=== PATIENT | male | born 2000 | race Caucasian/White ===

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

== ENCOUNTER 2022-01-04 19:29 | Emergency (ER) | payer MEDICAID ==
[2022-01-04] MEDS ORDERED: HALOPERIDOL LACTATE 5 MG/1 ML INJ IM PRN (19:52)
[2022-01-04] MEDS ORDERED: diphenhydrAMINE 50 MG/ML VIAL IM PRN (19:52)
[2022-01-04] MEDS ORDERED: LORazepam 2 MG/ML VIAL IM PRN (19:52)
--- NOTE | 2022-01-04 19:57 | Emergency Department Report ---
HPI - General Time Seen by Provider: 01/04/22 19:52 - HPI HPI: Charge nurse triage/mental health holding Patient is a 21-year-old male brought in for combative behavior. Patient reportedly has a history of schizophrenia. The patient was brought in by his mother for combative behavior. Patient was observed striking mother and being aggressive. Patient denies complaints ED Past Medical Hx - Past Medical History Hx Psychiatric Treatment: Yes (schizophrenia) - Surgical History Past Surgical History?: No - Family History Family history: no significant - Social History Smoking Status: Never Smoker Substance Use Type: None (denies illicit drug use) - Medications Home Medications: Home Medications Medication Instructions Recorded Confirmed Last Taken Type VALPROIC ACID Liq [DepaKENE Liq] 250 mg PO BID 07/30/19 07/30/19 Unknown History diphenhydrAMINE [Benadryl CAP] 25 mg PO QHS 07/30/19 07/30/19 Unknown History risperiDONE [RisperDAL ORAL LIQD] 2 mg PO QHS 07/30/19 07/30/19 Unknown History ED Review of Systems ROS: Stated complaint: MENTAL HEALTH EVAL Other details as noted in HPI Constitutional: no symptoms reported Eyes: denies: eye pain ENT: denies: throat pain Respiratory: no symptoms reported Cardiovascular: denies: chest pain Endocrine: no symptoms reported Gastrointestinal: denies: abdominal pain Genitourinary: denies: dysuria Musculoskeletal: denies: back pain Neurological: denies: headache Psychiatric: other (Combative behavior) Physical Exam - Physical Exam Physical Exam: GENERAL: The patient is well-developed well-nourished male lying on stretcher not appearing to be in acute distress. [] HEENT: Normocephalic. Atraumatic. Extraocular motions are intact. Patient has moist mucous membranes. NECK: Supple. Trachea midline CHEST/LUNGS: Clear to auscultation. There is no respiratory distress noted. HEART/CARDIOVASCULAR: Regular. There is no tachycardia. There is no gallop rub or murmur. ABDOMEN: Abdomen is soft, nontender. Patient has normal bowel sounds. There is no abdominal distention. SKIN: There is no rash. There is no edema. There is no diaphoresis. NEURO: The patient is awake, alert, and oriented. The patient is cooperative. The patient has no focal neurologic deficits. The patient has normal speech. GCS 15 MUSCULOSKELETAL: There is no evidence of acute injury. ED Medical Decision Making - Lab Data Result diagrams: 01/04/22 20:24 01/04/22 20:24 Laboratory Tests 01/04/22 01/04/22 01/04/22 20:24 20:24 20:24 WBC 9.7 RBC 6.03 H Hgb 17.0 H Hct 51.8 H MCV 86 MCH 28 MCHC 33 RDW 13.9 Plt Count 329 Lymph % (Auto) 23.9 [place] % (Auto) 10.2 H Eos % (Auto) 1.8 Baso % (Auto) 0.6 Lymph # (Auto) 2.3 [place] # (Auto) 1.0 H Eos # (Auto) 0.2 Baso # (Auto) 0.1 Seg Neutrophils % 63.5 Seg Neutrophils # 6.2 Sodium 137 Potassium 4.3 Chloride 99.7 Carbon Dioxide 20 L Anion Gap 22 BUN 9 Creatinine 1.0 Estimated GFR > 60 BUN/Creatinine Ratio 9 Glucose 253 H Calcium 10.2 Total Creatine Kinase Urine Color Urine Turbidity Urine pH Ur Specific [place] Urine Protein Urine Glucose (UA) Urine Ketones Urine Blood Urine Nitrite Urine Bilirubin Urine Urobilinogen Ur Leukocyte Esterase Urine WBC (Auto) Urine RBC (Auto) U Epithel Cells (Auto) Urine Mucus Salicylates < 0.3 L Urine Opiates Screen Urine Methadone Screen Acetaminophen Ur Barbiturates Screen Valproic Acid 48.7 L Ur Phencyclidine Scrn Ur Amphetamines Screen U Benzodiazepines Scrn Urine Cocaine Screen U Marijuana (THC) Screen Drugs of Abuse Note Plasma/Serum Alcohol 01/04/22 01/04/22 01/04/22 20:24 20:24 21:00 WBC RBC Hgb Hct MCV MCH MCHC RDW Plt Count Lymph % (Auto) [place] % (Auto) Eos % (Auto) Baso % (Auto) Lymph # (Auto) [place] # (Auto) Eos # (Auto) Baso # (Auto) Seg Neutrophils % Seg Neutrophils # Sodium Potassium Chloride Carbon Dioxide Anion Gap BUN Creatinine Estimated GFR BUN/Creatinine Ratio Glucose Calcium Total Creatine Kinase 292 H Urine Color Urine Turbidity Urine pH Ur Specific [place] Urine Protein Urine Glucose (UA) Urine Ketones Urine Blood Urine Nitrite Urine Bilirubin Urine Urobilinogen Ur Leukocyte Esterase Urine WBC (Auto) Urine RBC (Auto) U Epithel Cells (Auto) Urine Mucus Salicylates Urine Opiates Screen Urine Methadone Screen Acetaminophen 5.0 L Ur Barbiturates Screen Valproic Acid Ur Phencyclidine Scrn Ur Amphetamines Screen U Benzodiazepines Scrn Urine Cocaine Screen U Marijuana (THC) Screen Drugs of Abuse Note Plasma/Serum Alcohol < 0.01 01/04/22 01/04/22 Unknown Unknown WBC RBC Hgb Hct MCV MCH MCHC RDW Plt Count Lymph % (Auto) [place] % (Auto) Eos % (Auto) Baso % (Auto) Lymph # (Auto) [place] # (Auto) Eos # (Auto) Baso # (Auto) Seg Neutrophils % Seg Neutrophils # Sodium Potassium Chloride Carbon Dioxide Anion Gap BUN Creatinine Estimated GFR BUN/Creatinine Ratio Glucose Calcium Total Creatine Kinase Urine Color Yellow Urine Turbidity Clear Urine pH 6.0 Ur Specific [place] 1.021 Urine Protein 100 mg/dl Urine Glucose (UA) >=500 Urine Ketones 20 Urine Blood Mod Urine Nitrite Neg Urine Bilirubin Neg Urine Urobilinogen 4.0 Ur Leukocyte Esterase Neg Urine WBC (Auto) 2.0 Urine RBC (Auto) 6.0 U Epithel Cells (Auto) < 1.0 Urine Mucus Few Salicylates Urine Opiates Screen Presumptive negative Urine Methadone Screen Presumptive negative Acetaminophen Ur Barbiturates Screen Presumptive negative Valproic Acid Ur Phencyclidine Scrn Presumptive negative Ur Amphetamines Screen Presumptive negative U Benzodiazepines Scrn Presumptive negative Urine Cocaine Screen Presumptive negative U Marijuana (THC) Screen Presumptive negative Drugs of Abuse Note Disclamer Plasma/Serum Alcohol - Differential Diagnosis Schizophrenia, combative behavior Critical care attestation.: If time is entered above; I have spent that time in minutes in the direct care of this critically ill patient, excluding procedure time. ED Disposition Clinical Impression: Schizophrenia, Combative behavior Disposition: 30 STILL A PATIENT Is pt being admited?: No Does the pt Need Aspirin: No Condition: Stable Time of Disposition: 21:53 (Awaiting psych eval)
[2022-01-04 20:20] LABS: Color,Urine Yellow (Yellow)
[2022-01-04 20:21] LABS: Bilirubin,Urine NEG (Negative); Blood,Urine MOD (Negative)
[2022-01-04 20:30] LABS: Amphetamine Screen,Urine PRESUMPTIVE NEGATIVE; Benzodiazepines Screen,Urine PRESUMPTIVE NEGATIVE; Cannabinoid Screen,Urine PRESUMPTIVE NEGATIVE; Cocaine Screen,Urine PRESUMPTIVE NEGATIVE; Methadone Screen,Urine PRESUMPTIVE NEGATIVE; Opiate Screen,Urine PRESUMPTIVE NEGATIVE
[2022-01-04 20:32] LABS: Mucus,Urine FEW /HPF
[2022-01-04 20:48] LABS: Basophils # (Auto) 0.1 K/mm3 (0.0-0.1); Basophils % (Auto) 0.6 % (0.0-1.8); Eosinophils # (Auto) 0.2 K/mm3 (0.0-0.4); Eosinophils % (Auto) 1.8 % (0.0-4.3); Hematocrit 51.8 % (35.5-45.6); Lymphocytes # (Auto) 2.3 K/mm3 (1.2-5.4); Lymphocytes % (Auto) 23.9 % (13.4-35.0); Mean Corpuscular HGB Conc 33 % (32-34); Mean Corpuscular Volume 86 fl (84-94); Monocytes % (Auto) 10.2 % (0.0-7.3); Platelet Count 329 K/mm3 (140-440); Red Blood Count 6.03 M/mm3 (3.65-5.03); Red Cell Distribution Width 13.9 % (13.2-15.2)
[2022-01-04 21:02] LABS: BUN/Creatinine Ratio 9; Blood Urea Nitrogen 9 mg/dL (9-20); Calcium 10.2 mg/dL (8.4-10.2); Hemolysis Index 19
[2022-01-05] MEDS ORDERED: ZIPRASIDONE MESYLATE 20 MG VIAL IM ONE (00:41)
[2022-01-05] MEDS ORDERED: ONDANSETRON 4 MG ODT TAB PO ONE (00:42)
--- NOTE | 2022-01-05 10:28 | Progress Note ---
Subjective - Reason for Consult Consult date: 01/05/22 Reason for consult: combative behavior - Chief Complaint Chief complaint: HPI: Patient is a 21-year-old male brought in for combative behavior. Patient reportedly has a history of schizophrenia. The patient was brought in by his mother for combative behavior. Patient was observed striking mother and being aggressive. Patient denies complaints. The patient was seen today. He is in the seclusion room. He has defecated on the floor. Staff says he's been attempting to go in other's rooms. The patient is avoidant and uncooperative during the evaluation. He responds "I don't know" to most questions or shrugs his shoulders. I ask him was he trying to hurt himself or anyone at home, he shrugs his shoulder. Security is trying to get the patient to go in his room, he is refusing. PAST PSYCHIATRIC HISTORY: Unable to obtain PAST MEDICAL HISTORY: None reported Family Psychiatric History: None reported or documented SOCIAL HISTORY Unable to obtain REVIEW OF SYSTEMS Unable to obtain MENTAL STATUS EXAMINATION General Appearance and Behavior: Age appropriate, wearing appropriate clothes, uncooperative, avoidant Cooperation: uncooperative Unable to adequately assess Diagnoses: Mood Disorder, Unspecified Treatment Plan 1013 Risperidon 2mg po qhs Valproic Acid 250mg po BID Sitter: defer to primary Medical: Per primary Disposition: Recommend acute psychiatric inpatient treatment Will follow. Thanks Case staffed with Dr. Ortega Mental Status Exam - Vital signs Last Vital Signs Temp 98.0 F 01/05/22 10:02 Pulse 94 H 01/05/22 10:02 Resp 15 01/05/22 10:02 BP 149/82 01/05/22 10:02 Pulse Ox 98 01/05/22 10:02
[2022-01-05] MEDS: VALPROIC ACID 250 MG/5 ML ORAL LIQD PO SCH ×2 (14:45→21:46)
[2022-01-05] MEDS: risperiDONE 1 MG/1 ML ORAL LIQD PO SCH (21:47)
--- NOTE | 2022-01-06 10:41 | Progress Note ---
Subjective - Reason for Consult Consult date: 01/06/22 Reason for consult: agitation - Chief Complaint Chief complaint: The patient was seen today. It's possible that the patient could be mentally delayed. At times he seems to not understand certain questioning. He says he only completed the 7th grade in school. He is calm. The patient is more cooperative today than yesterday. The patient did verbalize that he's doing good. He denies SI/HI or hallucinations. Will no longer recommend inpatient psychiatric treatment, and have the patient follow up with outpatient psychiatrist to adjust medications. REVIEW OF SYSTEMS Constitutional: Negative for weight loss ENT: Negative for stridor Respiratory: Negative for cough or hemoptysis All other systems reviewed and are negative MENTAL STATUS EXAMINATION General Appearance: Dressed appropriately Behavior: calm and cooperative Mood: good Affect and affective range: restricted Thought Process: Goal directed Thought content: None Speech: Normal tone and pace Suicidal Ideation: Denies Homicidal Ideation: Denies Hallucinations: Denies Delusions: None elicited Insight and Judgment: Limited insight and judgment Memory: Limited Attention: attentive Orientation: Alert, oriented Diagnoses: Mood Disorder, Unspecified Treatment Plan d/c 1013 Risperidon 2mg po qhs Valproic Acid 250mg po BID Sitter: defer to primary Medical: Per primary Disposition: Do no recommend acute psychiatric inpatient treatment The hand glove cleaner to further discuss safety plan and give the patient all necessary resources Will sign off. Thanks Case staffed with Dr. Ortega Mental Status Exam - Vital signs Last Vital Signs Temp 98.5 F 01/05/22 22:05 Pulse 100 H 01/05/22 22:05 Resp 16 01/05/22 22:05 BP 147/87 01/05/22 22:05 Pulse Ox 97 01/06/22 05:03
[2022-01-06] MEDS: VALPROIC ACID 250 MG/5 ML ORAL LIQD PO SCH ×2 (10:58→22:00)
[2022-01-06] MEDS: risperiDONE 1 MG/1 ML ORAL LIQD PO SCH (22:00)
--- NOTE | 2022-01-07 11:24 | Progress Note ---
Subjective - Reason for Consult Consult date: 01/07/22 Reason for consult: agitatioin - Chief Complaint Chief complaint: The patient was seen today. He is in seclusion. He does not wake up to speak with me. He was cleared by psych yesterday, but when parents came to get him he became combative with them and didn't want to leave. Will change disposition to recommend inpatient treatment to stabilize the patient. The conservation officer is working to get the patient placed at a facility. REVIEW OF SYSTEMS Unable to obtain MENTAL STATUS EXAMINATION Unable to obtain Diagnoses: Mood Disorder, Unspecified Treatment Plan Risperidon 2mg po qhs Valproic Acid 250mg po BID Sitter: defer to primary Medical: Per primary Disposition: recommend acute psychiatric inpatient treatment Will follow. Thanks Case staffed with Dr. Ortega Mental Status Exam - Vital signs Last Vital Signs Temp 98.9 F 01/06/22 22:00 Pulse 16 L 01/06/22 22:00 Resp 20 01/06/22 22:00 BP 149/83 01/06/22 22:00 Pulse Ox 98 01/06/22 22:00
[2022-01-07] MEDS: VALPROIC ACID 250 MG/5 ML ORAL LIQD PO SCH ×2 (12:10→22:44)
--- NOTE | 2022-01-07 12:14 | Emergency Department Report ---
Blank Doc - Documentation Documentation: 21-year-old male on 1013 awaiting placement. Chart reviewed. Patient is comp liant with p.o. medications.
[2022-01-07] MEDS: risperiDONE 1 MG/1 ML ORAL LIQD PO SCH (22:44)
[2022-01-08] MEDS: VALPROIC ACID 250 MG/5 ML ORAL LIQD PO SCH ×2 (11:48→22:36)
--- NOTE | 2022-01-08 12:15 | Progress Note ---
Subjective - Reason for Consult Consult date: 01/08/22 Reason for consult: agitation - Chief Complaint Chief complaint: The patient was seen today. He is no longer in seclusion. He is resting quietly. He arouses to talk to me. He says he's doing good and slept well. The patient denies any thoughts of self harm. I asked if he felt like he wanted to hurt his parents or anyone else, he says "no." The patient denies hallucinations of any kind. Nurse Bren says she spoke with the patient's father about him coming home, and states he replied "tomorrow he can come home." Will no longer recommend acute psychiatric inpatient treatment. The patient's condition appears to be behavioral. REVIEW OF SYSTEMS Unable to obtain MENTAL STATUS EXAMINATION Unable to obtain Diagnoses: Mood Disorder, Unspecified Treatment Plan Risperidon 2mg po qhs Valproic Acid 250mg po BID Sitter: defer to primary Medical: Per primary Disposition: Do not recommend acute psychiatric inpatient treatment The assessors to give all necessary resources The patient to follow up with outpatient psych in 7 to 14 days upon discharge and discuss possible med changes. Will sign off. Thanks Case staffed with Dr. Ortega Mental Status Exam - Vital signs Last Vital Signs Temp 98.9 F 01/06/22 22:00 Pulse 16 L 01/06/22 22:00 Resp 20 01/06/22 22:00 BP 149/83 01/06/22 22:00 Pulse Ox 98 01/06/22 22:00
--- NOTE | 2022-01-08 13:49 | Emergency Department Report ---
Blank Doc - Documentation Documentation: S: Patient reportedly running around pulling alarms uncontrollable behavior ne cessitating seclusion O: Vital Signs - 8 hr 01/08/22 13:12 Temperature 98.2 F Pulse Rate 92 H Respiratory 20 Rate Blood Pressure 165/96 [Left] O2 Sat by Pulse 98 Oximetry E: Mood disorder P: Awaiting inpatient psych
[2022-01-08] MEDS: risperiDONE 1 MG/1 ML ORAL LIQD PO SCH (22:36)
[2022-01-09] MEDS: VALPROIC ACID 250 MG/5 ML ORAL LIQD PO SCH (10:47)
--- NOTE | 2022-01-09 12:06 | Emergency Department Report ---
Blank Doc - Documentation Documentation: S: No events reported overnight O: Vital Signs - 8 hr 01/09/22 14:30 Temperature 98.8 F Pulse Rate 124 H Respiratory 18 Rate Blood Pressure 142/86 [Left] O2 Sat by Pulse 98 Oximetry E: Mood disorder P: Awaiting inpatient psych
[2022-01-09 14:31] VITALS: BP 142/86
== END 2022-01-09 17:44 | disposition home or self-care (01) ==
LOC: ED 19:29 → EEVIPCON 19:29 → ED 01-09 17:44
DX: F20.9 Schizophrenia, unspecified (principal); F91.9 Conduct disorder, unspecified; Z20.822 Contact with and (suspected) exposure to COVID-19; Z79.899 Other long term (current) drug therapy
CPT/HCPCS: 36415; 80048; 80164; 80307; 81001; 82550; 85025; 96372; 99284; J1200; J1630; J2060; J3486; U0003; 80320; J3490; G0480; Q0162

== ENCOUNTER 2022-02-18 16:34 | Emergency (ER) | payer MEDICAID | END 2022-02-18 17:00 | disposition left against medical advice (07) | LOC: ED 16:34 | DX: Z13.30 Encounter for screening examination for mental health and behavioral disorders, unspecified (principal); Z53.21 Procedure and treatment not carried out due to patient leaving prior to being seen by health care provider ==